=== PATIENT | male | born 1960 | race Caucasian/White ===

== ENCOUNTER 2016-04-16 12:48 | Day surgery (SDC) | payer OTHER ==
[~2016-04-16] VITALS: Ht 172.7 cm; Wt 88.4 kg
[~2016-04-16 12:48] MED LIST: APRESOLINE25 MG PO; ASPIR 8181 M1 PO; LEVEMIR100 UNIT/2 SC; LIDODERM 5% P1 PATCH TD; LOSARTAN POTAS100 MG PO; NAPROSYN500 MG PO; NEPHRO-VITE,1 TABLET PO; NEURONTIN100 MG PO; NORMODYNE,TRAN200 MG PO; NORVASC10 MG PO; NOVOLOG PE100 UNITS/ SC; OXYCODONE-APAP1 EACH PO; RENVELA800 MG PO; SENSIPAR30 MG PO; SYNTHROID100 MCG PO; VALIUM5 MG PO; ZOLOFT50 MG PO
[2016-04-16 13:20] VITALS: BP 171/68
[2016-04-16 13:26] LABS: POINT-OF-CARE METER ID UU14174212
[2016-04-16 14:35] LABS: METH RESISTANT S AUREUS PCR POSITIVE (NEGATIVE)
[2016-04-16 14:38] LABS: PROBE CHECK PASS
[2016-04-16 17:07] LABS: POINT-OF-CARE METER ID UU13113675
[2016-04-16 18:20] VITALS: BP 144/65
[2016-04-16 19:16] LABS: POINT-OF-CARE METER ID UU14174212
[2016-04-16 19:22] VITALS: BP 158/55
[2016-04-16 19:49] VITALS: BP 135/47
== END 2016-04-16 20:25 ==
LOC: SDC 12:48
PROVIDERS: Orthopaedic Surgery
DX: M86.242 Subacute osteomyelitis, left hand (principal); I12.0 Hypertensive chronic kidney disease with stage 5 chronic kidney disease or end stage renal disease; E11.22 Type 2 diabetes mellitus with diabetic chronic kidney disease; N18.6 End stage renal disease; E03.9 Hypothyroidism, unspecified
CPT/HCPCS: 82948; 87641; 88305; J0690; J1170; J2250; J2405; J3010; S0020